=== PATIENT | male | born 1930 | race Caucasian/White ===

== ENCOUNTER → 2016-04-18 | Outpatient (CLI) | payer MEDICARE, BC ==
[~2016-04-18] MED LIST: ALBUTEROL2.5 MG/0.5; ALDACTONE25 MG FT; ASPIRIN (CHILDR81 MG; CARBIDOPA-LEVO1 EAC7 FT; COLACE100 MG; COREG3.125 MG FT; COUMADIN4 MG PO; DOCUSATE SODIU100 M1 FT; DULCOLAX5 MG; ECOTRIN325 MG PO; EXELON PATCH 99.5 MG TOP; FISH OIL1000 MG; FLEET ENEMA133 ML; FLOMAX0.4 MG PO; KLONOPIN0.5 M1 NGT; LASIX80 M1 FT; LIPITOR10 M1 FT; LOVENOX30 MG/0.3 SUB-Q; MAGOX 400400 MG FT; MILK OF MA400 MG/5 M FT; MIRALAX17 GM FT; MIRAPEX0.25 MG FT; MIRAPEX0.75 MG FT; MIRAPEX1 MG FT; OCEAN NASAL) (A44 ML NOSE; PROTONIX40 MG PO; TYLENOL325 MG; TYLENOL325 MG PO; ZOFRAN2 MG/1 ML IVP; ZYLOPRIM100 MG NGT
== END | disposition disaster alternative care site (69) ==
LOC: GAMB 11:50
DX: R55 Syncope and collapse (principal)
CPT/HCPCS: A0425; A0427